=== PATIENT | female | born 1940 | race Caucasian/White ===

== ENCOUNTER 2018-10-18 01:42 | Inpatient (IN) | payer MEDICARE ==
[~2018-10-18] VITALS: Ht 157.5 cm; Wt 75.3 kg
[2018-10-18 01:46] VITALS: BP 143/77
[2018-10-18] MEDS ORDERED: Morphine Sulfate 2mg/ml Inj(IV/IM USE ONLY) IVP ONE (02:00)
[2018-10-18] MEDS ORDERED: Pantoprazole Inj IV ONE (02:00)
--- NOTE | 2018-10-18 02:02 | Emergency Room Report ---
History of Present Illness General Chief Complaint: Abdominal Pain Source: Patient, Family Member Present Illness HPI This is 78-year-old female with a history of gastritis and reflux. She presents with chief complaint of epigastric abdominal pain and vomiting. Onset around 9:00. Unable to keep anything down. Multiple episode vomiting. Initially nonbloody nonbilious. Now with specks of blood. Pain radiates to the left upper quadrant. No diarrhea. No chest pain. No shows of breath. Pain is 7 out of 10. Nothing made it better. Eating makes it worse. Allergies: Coded Allergies: No Known Allergies (Unverified , 10/18/18) Patient History Past Medical History: see triage record, old chart reviewed, DM, HTN Past Surgical History: none Pertinent Family History: none Social History: Denies: smoking Now: No Immunizations: other Reviewed Nursing Documentation: PMH: Agreed; PSxH: Agreed Review of Systems Eye: Denies: eye pain, blurred vision ENT: Denies: ear pain, nose congestion, throat swelling Respiratory: Denies: cough, shortness of breath Cardiovascular: Denies: chest pain, palpitations Gastrointestinal: Reports: abdominal pain, nausea, vomiting; Denies: diarrhea Musculoskeletal: Denies: back pain, joint pain Skin: Denies: rash Neurological: Denies: headache, numbness Endocrine: Denies: increased thirst, increased urine Hematologic/Lymphatic: Denies: easy bruising All Other Systems: negative except mentioned in HPI Physical Exam Vital Signs Date Time Temp Pulse Resp B/P (MAP) Pulse Ox O2 Delivery O2 Flow Rate FiO2 10/18/18 01:46 97.9 92 15 143/77 90 Room Air vitals with hypoxia. Repeat is 98% on room air Sp02 EP Interpretation: reviewed, normal General Appearance: well appearing, no apparent distress, alert Head: normocephalic, atraumatic Eyes: bilateral eye PERRL, bilateral eye EOMI ENT: hearing grossly normal, normal pharynx Neck: full range of motion, supple, no meningismus Respiratory: chest non-tender, lungs clear, normal breath sounds Cardiovascular #1: regular rate, rhythm, no murmur Gastrointestinal: no mass, no organomegaly, no bruit, non-distended, tenderness - Epigastric, decreased bowel sounds Musculoskeletal: back normal, gait/station normal, normal range of motion Psychiatric: mood/affect normal Skin: warm/dry Medical Decision Making Diagnostic Impression: Primary Impression: Organoaxial gastric volvulus Additional Impression: Hiatal hernia ER Course Patient presents with acute onset of vomiting and abdominal pain. CT scan show gastric volvulus. Initially patient does not want to be admitted but reluctantly agreed. Patient will be admitted with surgical consultation. I discussed the case with who will admit for Dr. Forman. I consulted Dr. Guzman, surgeon. Lab Results Impression labs unremarkable CT/MRI/US Diagnostic Results CT/MRI/US Diagnostic Results : Imaging Test Ordered: CT abdomen and pelvis Impression Read by radiologist. Large hiatal hernia with fluid distention of the stomach. This is concerning for organoaxial volvulus. Gallstone. Last Vital Signs Date Time Temp Pulse Resp B/P (MAP) Pulse Ox O2 Delivery O2 Flow Rate FiO2 10/18/18 01:46 97.9 92 15 143/77 90 Room Air Status: improved Disposition: ADMITTED INPATIENT Condition: Serious Juan Batista MD Oct 18, 2018 02:02
[2018-10-18 02:39] LABS: BASOPHILS % (AUTO) 0.6 % (0.0-2.0); EOSINOPHILS % (AUTO) 0.1 % (0.0-3.0); HEMATOCRIT 43.4 % (37.0-47.0); HEMOGLOBIN 14.5 G/DL (12.0-16.0); LYMPHOCYTES % (AUTO) 13.5 % (20.0-45.0); MEAN CORPUSCULAR VOLUME 84 FL (80-99); NEUTROPHILS % (AUTO) 82.9 % (45.0-75.0); PLATELET COUNT 256 K/UL (150-450); RED BLOOD COUNT 5.18 M/UL (4.20-5.40); RED CELL DISTRIBUTION WIDTH 12.8 % (11.6-14.8); WHITE BLOOD COUNT 10.4 K/UL (4.8-10.8)
[2018-10-18 02:58] LABS: ANION GAP 7 mmol/L (5-15); BLOOD UREA NITROGEN 25 mg/dL (7-18); CALCIUM 10.3 MG/DL (8.5-10.1); CARBON DIOXIDE 36 MMOL/L (21-32); CHLORIDE 101 MMOL/L (98-107); CREATININE 0.8 MG/DL (0.55-1.30); POTASSIUM 4.4 MMOL/L (3.5-5.1); SODIUM 144 MMOL/L (136-145)
[2018-10-18 03:02] LABS: ALANINE AMINOTRANSFERASE 44 U/L (12-78); ALBUMIN 3.8 G/DL (3.4-5.0); ALBUMIN/GLOBULIN RATIO 0.8 (1.0-2.7); ALKALINE PHOSPHATASE 55 U/L (46-116); ASPARTATE AMINO TRANSFERASE 39 U/L (15-37); BILIRUBIN,TOTAL 0.3 MG/DL (0.2-1.0)
[2018-10-18 03:07] LABS: APPEARANCE,URINE CLEAR; COLOR,URINE YELLOW
[2018-10-18 03:08] LABS: BILIRUBIN, URINE NEGATIVE (NEGATIVE); GLUCOSE, URINE (UA) NEGATIVE (NEGATIVE); KETONES,URINE NEGATIVE (NEGATIVE); LEUKOCYTE ESTERASE ,URINE 1+ (NEGATIVE); NITRITE,URINE NEGATIVE (NEGATIVE); PH,URINE 8 (4.5-8.0); PROTEIN,URINE 1+ (NEGATIVE); UROBILINOGEN,URINE NORMAL MG/DL (0.0-1.0)
[2018-10-18] MEDS ORDERED: REGLAN10 MG ORAL (04:59)
[2018-10-18] MEDS ORDERED: CARVEDILOL12.5 MG ORAL (04:59)
[2018-10-18 05:05] VITALS: BP 135/75
[2018-10-18] MEDS ORDERED: Morphine Sulfate 4mg/ml Inj (IV USE ONLY) IVP PRN (05:30)
[2018-10-18] MEDS ORDERED: Morphine Sulfate 2mg/ml Inj(IV/IM USE ONLY) IVP PRN ×2 (05:30→05:45)
--- NOTE | 2018-10-18 08:18 | Diagnostic Imaging Report ---
Indication: Abdominal pain for one day Technique: Spiral acquisitions obtained through the abdomen and pelvis. No oral contrast utilized, per emergency room physician request No IV contrast utilized, per referring physician request.. Multiplanar reconstructions were generated. Total dose length product 962.85 mGycm. CTDIvol(s) 19.75 mGy. Dose reduction achieved using automated exposure control Comparison: None Findings: There is a large paraesophageal hiatal hernia which contains nearly the entire stomach. The greater curvature protrudes below the diaphragm, but the fundus and antrum are supradiaphragmatic. The position of the esophagus is uncertain. Normal appendix. No evidence of diverticulosis or diverticulitis. No small bowel distention. No free or loculated intraperitoneal gas or fluid is evident. There is a gallstone. No gallbladder wall thickening. Lack of IV contrast limits assessment of the solid organs. The liver, bile ducts, pancreas, spleen, adrenals, kidneys are all unremarkable. No retroperitoneal or mesenteric mass or adenopathy. No pelvic mass or adenopathy. The uterus is absent, presumably postsurgically. The included lung bases demonstrate a 6 mm noncalcified nodule within the right middle lobe on the highest cuts. Atelectatic changes are seen at both lung bases. The bones demonstrate degenerative spondylosis changes. There is also lumbar scoliotic deformity. Impression: Large paraesophageal hiatal hernia with abnormal orientation is evident. Exact orientation the stomach uncertain as the position of the esophagus cannot be visualized, but suspect organoaxial type gastric volvulus. Cholelithiasis Prior hysterectomy Degenerative spondylosis and scoliosis The above findings are in agreement with the [facility] preliminary report 6 mm right middle lobe lung nodule. If there are no significant risk factors for lung carcinoma, no follow-up is necessary. If there are significant risk factors then short interval follow-up 6-[address] recommended. This finding was not described on the [facility] preliminary report, but patient's charge nurse was notified at the time of interpretation The CT scanner at [facility] is accredited by the [employer] and the scans are performed using protocols designed to limit radiation exposure to as low as reasonably achievable to attain images of sufficient resolution adequate for diagnostic evaluation.
--- NOTE | 2018-10-23 10:47 | Discharge Summary ---
Discharge Summary Hospital Course Date of Admission Oct 18, 2018 at 04:30 Date of Discharge Oct 18, 2018 at 08:00 Admitting Diagnosis GASTRIC VOLVULUS HPI Shanda Piedra is a 78 year old female who was admitted on Oct 18, 2018 at 04: 30 for Gastric Volvulus Discharge Discharge Disposition Patient signed out AMA before I was able to speak to her Discharge Diagnoses: (1) Gastric volvulus Richmond Mejia MD Oct 23, 2018 10:47
== END 2018-10-18 08:00 | disposition left against medical advice (07) | DRG 392 ==
LOC: EMR 02:02 → 4E 04:30 → EDBEDREQ 04:47
DX: K31.89 Other diseases of stomach and duodenum (principal); K44.9 Diaphragmatic hernia without obstruction or gangrene
CPT/HCPCS: 36415; 74176; 80053; 81003; 83690; 85025; 96361; 96374; 96375; 99285; J2405